=== PATIENT | female | born 1975 | race Caucasian/White ===

== ENCOUNTER → 2017-02-23 | Outpatient (CLI) | payer OTHER ==
[2015-07-14 10:33] VITALS: BP 116/70
[~2017-02-23] MED LIST: ALPR1TAB2 PO; AZEL23SP NS; AZIT1PAC PO; BUPIVACAINE MPF 0.25% 10 ML VIAL. ONE; CETI10CA PO; DEXT30TA2 PO; HYDR-965 PO; IBUP800T19 PO; IOHEXOL 300 MG/ML 50 ML VIAL. ONE; LACT1CAP6 PO; LIDOCAINE 1% PF 30 ML VIAL. ONE; LURA40TA PO; MOME17SP NS; MULT1TAB52 PO
== END | disposition home or self-care (01) ==
LOC: SURG 12:31
PROVIDERS: ATTEND Anesthesiology Pain Medicine
DX: M53.3 Sacrococcygeal disorders, not elsewhere classified (principal); M19.91 Primary osteoarthritis, unspecified site; Z98.890 Other specified postprocedural states; Z88.1 Allergy status to other antibiotic agents; Z88.0 Allergy status to penicillin
CPT/HCPCS: 64520; J2001; J3490; Q9967

== ENCOUNTER → 2018-09-28 | Outpatient (CLI) | payer OTHER ==
[2015-07-14 10:33] VITALS: BP 116/70
[~2018-09-28] MED LIST changes: -BUPIVACAINE MPF 0.25% 10 ML VIAL. ONE; +HYDR-3166 PO; -HYDR-965 PO; -IOHEXOL 300 MG/ML 50 ML VIAL. ONE; -LIDOCAINE 1% PF 30 ML VIAL. ONE
--- NOTE | 2018-09-28 16:19 | RAD ---
PA and lateral chest x-ray without comparison for productive cough and chest pressure. FINDINGS: There is an ovoid opacity in the right midlung which is somewhat masslike, but most likely represents a pneumonic infiltrate. Follow-up to ensure resolution is recommended however. No other lung parenchymal abnormalities. Cardiomediastinum is grossly unremarkable. No significant osseous anomalies. IMPRESSION: 1. Ovoid somewhat masslike opacity in the right midlung which most likely represents a pneumonic infiltrate. Underlying mass cannot be definitely excluded however, and follow-up chest x-ray 2 to 4 weeks following clinical resolution is recommended. Electronically signed by: Mike Carmen MD (09/28/2018 4:16 PM) [id number]
== END | disposition home or self-care (01) ==
LOC: RAD 14:59
PROVIDERS: ATTEND Registered Nurse
DX: R91.8 Other nonspecific abnormal finding of lung field (principal)
CPT/HCPCS: 71046

== ENCOUNTER → 2018-10-04 | Outpatient (CLI) | payer OTHER ==
[2015-07-14 10:33] VITALS: BP 116/70
--- NOTE | 2018-10-04 16:54 | RAD ---
CHEST PA LATERAL Clinical indications: Cough. COMPARISON: September 28, 2018. Findings: There has been improvement in the right upper lobe lung infiltrate. No new lung infiltrate is seen. No pleural effusion or pneumothorax is evident. The heart size, pulmonary vasculature, mediastinum and both lucy are unremarkable. The osseous structures appear intact. Impression: Improvement of right upper lobe lung infiltrate. Electronically signed by: Ángel Mendes MD (10/04/2018 4:51 PM) [id number]
== END | disposition home or self-care (01) ==
LOC: DXRAD 14:57
PROVIDERS: ATTEND Registered Nurse
DX: R91.8 Other nonspecific abnormal finding of lung field (principal)
CPT/HCPCS: 71046

== ENCOUNTER → 2021-02-04 | Outpatient (CLI) | payer OTHER ==
[2015-07-14 10:33] VITALS: BP 116/70
[~2021-02-04] MED LIST changes: +MULT-445 PO; -MULT1TAB52 PO
--- NOTE | 2021-02-04 08:51 | RAD ---
EXAM: Pelvic sonogram. HISTORY: Dysfunctional uterine bleeding. TECHNIQUE: Transabdominal and transvaginal sonographic imaging of the pelvis was performed. COMPARISON: 01/27/2016. FINDINGS: The uterus measures 8.7 x 4.8 x 3.2 cm. The endometrial stripe measures 6.6 mm in thickness . There are small complicated cyst with internal echogenic foci possibly due to calcification within the lower uterine segment and cervix. The right ovary is not seen. No adnexal mass or cyst is seen. T he left ovary is normal in size and demonstrate normal blood flow. There is no pelvic free fluid. IMPRESSION: 1. Small complicated cysts with internal echogenic foci possibly due to calcification within the lowe r uterine segment and cervix. These may be due to complicated nabothian cysts. The possibility of com plicated endometrial cysts is not excluded. The endometrial stripe is normal in thickness for the pre menopausal status of patient. 2. Obscured right ovary. The left ovary is unremarkable. Electronically signed by: Keena Cruz MD (02/04/2021 8:48 AM) [id number]
--- NOTE | 2021-02-06 13:22 | RAD ---
EXAM: Bilateral digital screening mammogram with tomosynthesis. HISTORY: 45-year-old female presents for screening mammography. TECHNIQUE: Full-field digital craniocaudal and mediolateral oblique 2D and 3D tomosynthesis images of both breasts are obtained for evaluation. Computer aided detection was applied. COMPARISON: 01/20/2016 BREAST PARENCHYMAL DENSITY: Level B - Scattered fibroglandular densities. FINDINGS: There is no new suspicious mass, microcalcification or region of architectural distortion. IMPRESSION: BI-RADS Category 2: Benign finding(s). RECOMMENDATION: Annual mammography is recommended. If your mammogram demonstrates that you have dense breast tissue, which could hide abnormalities, and if you have other risk factors for breast cancer that have been identified, you might benefit from s upplemental screening tests that may be suggested by your ordering physician. Dense breast tissue, i n and of itself, is a relatively common condition. This information is not provided to cause undue c oncern, but rather to raise your awareness and to promote discussion with your physician regarding th e presence of other risk factors, in addition to dense breast tissue. A report of your mammography re sults will be sent to you and your physician. You should contact your physician if you have any ques tions or concerns regarding this report. Mammography is a sensitive method for finding small breast cancers, but it does not detect them all a nd is not a substitute for careful clinical examination. A negative mammogram does not negate a clin ically suspicious finding and should not result in delay in biopsying a clinically suspicious abnorma lity. PQRS compliance statement - Patient information was entered into a reminder system with a target due date for the next mammogram. "Our facility is accredited by the [employer] Mammography Program." Electronically signed by: Keena Cruz MD (02/06/2021 1:20 PM) [id number]
== END ==
LOC: US 07:52
PROVIDERS: ATTEND Physician Assistant Medical
DX: Z12.31 Encounter for screening mammogram for malignant neoplasm of breast (principal); N93.8 Other specified abnormal uterine and vaginal bleeding
CPT/HCPCS: 76830; 76856; 77063; 77067